=== PATIENT | female | born 1965 | race Caucasian/White ===

== ENCOUNTER 2016-11-05 07:32 | Day surgery (SDC) | payer OTHER ==
[~2016-11-05] VITALS: Ht 152.4 cm; Wt 52.2 kg
[~2016-11-05 07:32] MED LIST: DOXY100C2 PO; ESTR1PAT TD; PRE10 PO; PROG100C6 PO; Sodium Chloride LOK Flush 10 mL Syringe IV PRN; fentaNYL-PF 50 mCg/mL 2 mL Inj IVPUSH PRN
[2016-11-05 08:03] VITALS: BP 101/74; PULSE 52; O2SAT 99
[2016-11-05] MEDS ORDERED: 0.9% Sodium Chloride 1,000 ML ONE (08:09)
[2016-11-05 08:40] VITALS: BP 100/64; PULSE 57; RESP 12; O2SAT 97
[2016-11-05 08:51] VITALS: BP 92/56; PULSE 53; RESP 12; O2SAT 99
--- NOTE | 2016-11-05 08:55 | ENDO ---
[address] [address] ENDOSCOPY PROCEDURE PATIENT: ZIGGY LEON : 1965 MR#: [id number] ADMIT: 11/05/2016 JOB ID: [id number] DATE: 11/05/2016 TYPE OF OPERATION: Colonoscopy with biopsy. PREOPERATIVE DIAGNOSIS(ES): Colorectal cancer screening. POSTOPERATIVE DIAGNOSIS(ES): A 2 mm sigmoid polyp, removed by cold biopsy forceps. ANESTHESIA: 1. Fentanyl 100 mcg. 2. Versed 5 mg IV administered. COMPLICATIONS: None. BLOOD LOSS: Minimal. DESCRIPTION OF PROCEDURE: After risks and benefits were explained to the patient, informed consent was obtained. After anesthesia was administered, colonoscope was inserted from the rectum to cecum. Mucosa carefully examined. Prep of the patient was excellent. After procedure was done, the scope was withdrawn and the procedure terminated. FINDINGS: Upon inspection of the anus, no masses, hemorrhoids, ulcers or fissures that were seen. Throughout the entire examination, there was a 2 mm polyp seen in the sigmoid colon removed by cold biopsy forceps. Retroflexion was normal. IMPRESSION: A 2 mm sigmoid colon polyp removed with cold biopsy forceps. RECOMMENDATION: Await pathology results. If tubular adenoma, then repeat colonoscopy in five years.
[2016-11-05 09:00] VITALS: BP 102/66; PULSE 60; RESP 12; O2SAT 100
--- NOTE | 2016-11-08 11:33 | PATH ---
SURGICAL PATHOLOGY Attending Physician:Benito Michel MD CASE STATUS: Signed Out PATIENT NAME: ZIGGY LEON PID: [id number] : 1965 DATE COLLECTED:11/05/2016 17:30 SPECIMEN: Colon, Biopsy CLINICAL HISTORY: SIGMOID COLON POLYP FINAL DIAGNOSIS: 1.SIGMOID COLON POLYP: HYPERPLASTIC POLYP INVOLVING SINGLE BIOPSY FRAGMENT. ICD10 CODE K63.5 GROSS DESCRIPTION: The specimen is received in one formalin filled container labeled with the patient's name, sublabeled "sigmoid colon polyp" and consists of 2 portions of tissue which aggregate to 0.3 x 0.3 x 0.2 CM. The specimen is entirely submitted in one cassette. 11/05/2016 [facility] MICRO DESCRIPTION: See diagnosis. ICD-9 CODES: CPT CODES: 1: 79152 Electronically Signed Out Saul Camacho MD Located Within [facility] Pathology [facility] [address], [place] [address] Technical component performed at [facility], [facility] [address], [address]
== END 2016-11-05 23:59 | disposition home or self-care (01) ==
LOC: END 07:32
PROVIDERS: ATTEND Internal Medicine Gastroenterology
DX: Z12.11 Encounter for screening for malignant neoplasm of colon (principal); K63.5 Polyp of colon
CPT/HCPCS: 45380; G0500; J2250; J3010; J7030